=== PATIENT | male | born 1950 | race Caucasian/White ===

== ENCOUNTER → 2019-07-29 14:57 | Outpatient (CLI) | payer MEDICARE, SELFPAY ==
--- NOTE | 2019-07-29 15:15 | RAD_ITS ---
STUDY: X-RAY - LUMBAR SPINE REASON FOR EXAM: Male, 69 years old. PAIN TECHNIQUE: 5 view(s) of the lumbar spine were obtained including oblique views. COMPARISON: None FINDINGS: Normal lumbar lordosis. There is no substantial scoliosis. There is a normal alignment of the vertebrae. There is multilevel endplate spondylosis of the lumbar vertebrae. Normal disc space heights. There is atherosclerotic calcification of the abdominal aorta without a demonstrated aneurysm. RAD/L/S Spine Min 4 Views IMPRESSION: Degenerative changes of the spine, as detailed above. Electronically Signed: Valente Samano, at 15:46 EDT , Service support ,
--- NOTE | 2019-07-29 15:30 | RAD_ITS ---
STUDY: X-RAY CHEST REASON FOR EXAM: Male, 69 years old. PROGRESSIVE COUGH TECHNIQUE: PA and lateral views of the chest. COMPARISON: None. FINDINGS: Hyperinflation. There is a 7.3 cm x 5.8 cm x 6.7 cm mass in the superior segment of the left lower lobe. A neoplastic process should be ruled out. Correlation with a CT scan is recommended. There is no demonstrated pleural abnormality. Normal size heart. Normal mediastinum and mony. Normal visualized pulmonary arteries. There is atherosclerotic calcification of the aortic arch with tortuosity. There are diffuse degenerative changes of the visualized thoracic spine. Normal visualized ribs, clavicles, and shoulders. There is no demonstrated abnormality of the visualized soft tissue structures of the upper abdomen. RAD/Chest PA and Lateral IMPRESSION: 7.3 cm x 5.8 cm x 6.7 cm mass in the supervision of the left lower lobe. A neoplastic process should BE ruled out. Hyperinflation. Electronically Signed: Valente Samano, at 15:45 EDT , Service support ,
[2019-07-29 16:01] LABS: Hematocrit 36.1 % (40-54); Hemoglobin 11.4 g/dL (13.0-16.5); Mean Corp Hgb Conc 31.6 g/dL (32-36); Mean Corpuscular Hgb 25.4 pg (27.0-32.0); Mean Corpuscular Volume 80.6 fL (80-94); Mean Platelet Vol. 8.6 fl (6.2-12.0); Platelet Count 353 K/mm3 (150-450); RBC Distribution Width CV 15.1 % (11.6-14.6); RBC Distribution Width SD 43.8 fl (35.1-43.9); Red Blood Count 4.48 M/mm3 (4.6-6.2); White Blood Count 10.1 K/mm3 (4.4-11.0)
== END ==
PROVIDERS: PCP Nurse Practitioner Family; Visit Provider Nurse Practitioner Family
DX: J20.9 Acute bronchitis, unspecified (principal)
CPT/HCPCS: 36415; 71046; 72110; 85027

== ENCOUNTER → 2019-08-04 07:40 | Outpatient (CLI) | payer MEDICARE, SELFPAY ==
--- NOTE | 2019-08-04 07:48 | CT_ITS ---
STUDY: CT CHEST WITH CONTRAST REASON FOR EXAM: Male, 69 years old. LUNG NODULE RADIATION DOSAGE (If Supplied By Facility): CTDIvol = ( 8.48 ) mGy, DLP = ( 293.60 ) mGycm TECHNIQUE: Transaxial imaging was performed following intravenous administration of 100 mL of Isovue 300. Coronal and sagittal reconstructions were performed. Individualized dose optimization techniques were used for this CT. COMPARISON: PA and lateral chest radiographs 07/29/2019. No prior CT chest for comparison. FINDINGS: The lungs are abnormal. There is a 6.1 x 8.9 x 4.4 cm necrotic mass in the posterior medial aspect of the left lower lobe. This is malignant neoplasm until proven otherwise. There is a central cavitary lesion in the left lung apex with surrounding fibrosis and traction bronchiectasis. The left apical fibrosis extends into the left apical pleural space. There are also coalescent and noncoalescent paraseptal cysts surrounding the left apical fibrosis. Small paraseptal cyst in the right lung apex. Prominent cyst in the left lower lobe. No pleural fluid. Normal cardiac size. Normal pericardium. 1.5 cm solid node in the anterior carinal space. No hilar lymphadenopathy. Normal enhanced pulmonary arteries. Mild dilatation of the ascending aorta with a diameter of 2.9 cm versus 1.9 cm for the descending thoracic aorta. Mild atherosclerotic calcifications along the transverse aorta. No pulmonary thromboemboli. Normal osseous structures. Mild diffuse fatty infiltration of the liver. CT/Chest WITH Contrast IMPRESSION: 1. 6.1 x 8.9 x 4.4 cm necrotic mass in the posterior medial aspect of the left lower lobe. This is malignant neoplasm until proven otherwise. This is feasible for CT guided core biopsy. 2. Left apical cavitary fibrosis with traction bronchiectasis and the apical fibrosis is surrounded by coalescent and noncoalescent paraseptal cysts. 3. Small paraseptal cysts in the right lung apex. 4. Prominent cyst in the left lower lobe. 5. Airway predominant type of COPD as the paraseptal cysts are limited to the lung apices. 6. 1.5 cm solid node in the anterior carinal space. 7. Negative for pulmonary thromboemboli. 8. Mild dilatation of the ascending aorta with a diameter of 2.9 cm versus 1.9 cm for the descending thoracic aorta. Electronically Signed: Qasim Chung MD at 9:36 EDT , Service support ,
[2019-08-04 08:21] LABS: CREATININE FINGERSTICK 1.1 mg/dL (0.70-1.30); EGFR FINGERSTICK > 60.0000 mL/min (>60)
== END ==
PROVIDERS: Referring Provider Nurse Practitioner Family; Visit Provider Nurse Practitioner Family
DX: R91.8 Other nonspecific abnormal finding of lung field (principal); J20.9 Acute bronchitis, unspecified; R06.02 Shortness of breath; Z11.59 Encounter for screening for other viral diseases
CPT/HCPCS: 71260; 87635; 87804; 94799; G2023; Q9967; U0004

== ENCOUNTER → 2019-09-16 | Outpatient (CLI) | payer MEDICARE, SELFPAY ==
[2019-09-16 16:54] LABS: Hemoglobin A1c 7.6 % (3.8-5.6)
== END | disposition home or self-care (01) ==
LOC: LABSPEC 15:41
PROVIDERS: Referring Provider Internal Medicine Hematology & Oncology; Visit Provider Internal Medicine Hematology & Oncology
DX: R73.9 Hyperglycemia, unspecified (principal); C34.90 Malignant neoplasm of unspecified part of unspecified bronchus or lung
CPT/HCPCS: 83036; 84443

== ENCOUNTER → 2019-09-28 15:19 | Outpatient (CLI) | payer MEDICARE, SELFPAY ==
--- NOTE | 2019-09-28 16:00 | PET_ITS ---
EXAMINATION: FDG PET CT INDICATIONS: A 69-year-old male with reported history of carcinoma of the lung presenting for initial staging examination. COMPARISON EXAMINATION: CT of the chest report dated 08/04/19. INDEX LESION SIZE SUV INTERPRETATION Left mid-lower posteromedial lung-left lower lobe 5.7 cm x 7.0 cm (frame 166) 12.8 Fulfills quantitative criteria for viable neoplasm Mediastinum, bilateral thoracic perihilum 16.9 mm largest (frame 177) 4.9 (max) Fulfills quantitative criteria for malignant transformation NON-INDEX LESION SIZE SUV INTERPRETATION Left anterior neck, bilateral supraclavicular regions 2.1 (max) Quantitative criteria for viable neoplasm are not fulfilled TECHNIQUE: Following the intravenous administration of 11.55 mCi of F-18 deoxyglucose via the left antecubital fossa, multiplanar image acquisitions of the neck, chest, abdomen and pelvis to level of mid thigh, obtained at one hour post radiopharmaceutical administration contemporaneously interpreted with the current CT of the neck, chest, abdomen and pelvis to level of mid thigh, dated 09/28/[address] of the chest report dated 08/04/19 reveal: SERUM GLUCOSE LEVEL: 144 mg/dl. HEIGHT: 65 inches. WEIGHT: 136 lbs. FINDINGS: 1. A large heterogeneous focus of increased glucose metabolism with central photopenia is manifest in the left mid-lower posteromedial lung-left lower lobe. The calculated maximum standard uptake value is 12.8. The maximal axial diameter of the corresponding parenchymal density-mass on review of CT of the chest dated 09/28/19 is 5.7 cm (transverse) x 7.0 cm (AP). 2. Facilitated FDG concentration is multifocally apparent in the superior-subcarinal mediastinum and bilateral thoracic perihilar regions rendering a calculated maximum standard uptake value of 4.9. The maximal axial diameter of the largest individual metabolic, morphologic abnormality on review of CT of the chest dated 09/28/19 is 16.9 mm (AP). 3. Several foci of increased radiopharmaceutical uptake are manifest in the left supraclavicular region, bilateral anterior neck registering a calculated maximum standard uptake value of 2.1. Quantitative criteria for viable neoplasm are not fulfilled. 4. Normal physiologic distribution of the radiopharmaceutical is apparent in the hepatic (2.5) and splenic parenchyma, both renal units, bladder and visualized intestinal tract. There is uniform distribution of the radiopharmaceutical concentration defined in the visualized cerebellar hemispheres and cerebral cortical structures. Diffuse intestinal tract activity is noted throughout all four quadrants of the abdominal-pelvic retroperitoneum and mesentery consistent with normal physiologic distribution of the radiopharmaceutical most accentuated in the lower midline pelvic mesentery. Pertinent CT findings are as follows. CHEST: Atherosclerotic calcification is defined in the thoracic aorta without evidence of dilatation, aneurysm formation. Coronary arterial calcification is observed. Bilateral axillary soft tissue densities with fatty hilus are ametabolic. Emphysematous changes are noted in the bilateral upper lung zones. Additional parenchymal densities noted in the right and left hemithorax demonstrate no evidence of quantitatively significant increased FDG distribution. ABDOMEN AND PELVIS: Calcified granuloma formation is defined within the hepatic parenchyma. Atherosclerotic calcification is defined in the abdominal aorta without evidence of dilatation, aneurysm formation. Abdominal-pelvic arterial calcification is observed. Bilateral inguinal soft tissue densities with fatty hilus are non-glucose avid. There is diffuse calcification noted in the bilateral seminal vesicles, as well as multifocally apparent within the prostate gland. SKELETAL: Degenerative changes defined in the cervical, thoracic and lumbar spine demonstrate no evidence of glucose hypermetabolism. PET/PET/CT Tumor Base -Thigh Init IMPRESSION: 1. ABNORMAL EXAMINATION INDICATIVE OF MALIGNANT-VIABLE NEOPLASM. 2. Increased glucose concentration observed in the left lower lung-left lower lobe fulfills quantitative criteria for viable neoplasm. (Guzman et al, Annals of Internal Medicine, 138:724, 2003). 3. Viable metastatic involvement is noted in the superior-subcarinal mediastinum and bilateral thoracic perihilum. (George lion al, Journal of Clinical Oncology 16:2142, 1998). 4. Enhanced glucose avidity discerned in the left anterior neck and bilateral supraclavicular regions does not fulfill quantitative criteria for viable neoplasm. 5. Prominent tracer distribution noted in the lower midline pelvic mesentery contiguous to intestinal tract is most consistent with physiologic radiopharmaceutical uptake. If intraluminal soft tissue mass formation is a diagnostic consideration, correlation with CT of the abdomen and pelvis with oral and intravenous contrast is recommended. (Doaurora et al, Journal of Nuclear Medicine, 30:F074, 2003). Electronic Signature Damian Black, D.O. Accurate Quantification of SUVs for this report are calculated using the exclusive [employer]. (U.S. Patent No. 10, 374 983). Electronically Signed: Damian Alves DO at 22:28 EDT Tel , Service support ,
== END ==
PROVIDERS: Referring Provider Internal Medicine Hematology & Oncology; Visit Provider Internal Medicine Hematology & Oncology
DX: C34.32 Malignant neoplasm of lower lobe, left bronchus or lung (principal)
CPT/HCPCS: 78815; A9552

== ENCOUNTER → 2019-10-18 10:08 | Outpatient (CLI) | payer MEDICARE, SELFPAY ==
[2019-10-18 10:27] LABS: Absolute Lymphocyte Count 1.49 X10^3/uL (0.83-4.51); Absolute Neutrophil Count 6.5 X10^3/uL (2.0-7.7); Basophil# 0.04 X10^3/uL; Basophil% 0.4 % (0-1); Eosinophil# 0.19 X10^3/uL; Eosinophils% 2.1 % (0-5); Hematocrit 33.4 % (40-54); Hemoglobin 10.2 g/dL (13.0-16.5); Lymphocyte # 1.49 X10^3/ul (4.0); Lymphocyte % 16.2 % (19-41); Mean Corp Hgb Conc 30.5 g/dL (32-36); Mean Corpuscular Hgb 24.7 pg (27.0-32.0); Mean Corpuscular Volume 80.9 fL (80-94); Mean Platelet Vol. 8.2 fl (6.2-12.0); Monocyte# 0.96 X10^3/uL; Monocyte% 10.4 % (0-10); NRBC Flagged by Analyzer 0 % (0-5); Neutrophil # 6.48 X10^3/uL (2.7-7.7); Neutrophil % 70.5 % (47-70); Platelet Count 366 K/mm3 (150-450); RBC Distribution Width CV 16.3 % (11.6-14.6); RBC Distribution Width SD 46.8 fl (35.1-43.9); Red Blood Count 4.13 M/mm3 (4.6-6.2); White Blood Count 9.2 K/mm3 (4.4-11.0)
[2019-10-18 10:36] LABS: International Normalized Ratio 1.1; Prothrombin Time (Protime)PT. 13.6 SECONDS (11.7-14.9)
== END ==
PROVIDERS: PCP Nurse Practitioner Family; Referring Provider Internal Medicine Critical Care Medicine; Visit Provider Internal Medicine Critical Care Medicine
DX: C34.92 Malignant neoplasm of unspecified part of left bronchus or lung (principal); R07.9 Chest pain, unspecified
CPT/HCPCS: 36415; 85025; 85610

== ENCOUNTER 2019-10-22 10:50 | Day surgery (SDC) | payer MEDICARE, SELFPAY ==
--- NOTE | 2019-10-20 09:36 | HP.PCM_ITS ---
History of Present Illness Date of Admission: 10/22/19 Chief Complaint: PET + Hilar Adenopathy The patient is a 69-year-old male who presented to the pulmonary clinic on 10/16 in referral for mediastinal lymph node staging due to a history of non-small cell lung cancer. The patient initially completed a chest CT in July 2019 which did reveal evidence of a large necrotic mass in the left lower lobe. He was then referred to undergo a CT-guided needle biopsy at [facility] in August 2019. 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 The patient then completed a PET scan in mid September which revealed increased glucose concentration observed in the left lower lobe along with viable metastatic involvement in the subcarinal mediastinum and bilateral thoracic perihilum. The patient is currently established with Dr. Lomas of oncology. Given the results of the patient's PET scan, there is concern for possible N3 involvement. Therefore, the patient was referred to our office to be considered for right hilar lymph node evaluation via EBUS. The patient does have an approximate [id number] smoking history and continues to smoke 0.5 packs of cigarettes per day. He is currently scheduled to undergo pulmonary function studies on the of this month through the [facility]. He does not currently utilize any inhalers at his baseline. The patient was previously employed working for [employer]. Past Medical History Past Medical History (Chronic Problems): Chronic Problems (Last Reviewed 10/15/19 @ 13:24 by Tonya Zarate) HTN (hypertension) (Chronic) Medical History: Medical History (Last Reviewed 10/15/19 @ 13:24 by Tonya Zarate) Tobacco abuse (Acute) Z72.0 HTN (hypertension) (Chronic) I10 DM2 (diabetes mellitus, type 2) (Acute) E11.9 Allergies Penicillins Allergy (Unknown, Verified 10/19/19 10:41) Rash Home Medications: Ambulatory Orders Medication Instructions Recorded aspirin 81 mg tablet,delayed 81 mg PO DAILY 10/18/19 release glimepiride 2 mg tablet 2 mg PO DAILY 10/18/19 losartan 50 mg tablet 50 mg PO DAILY 10/18/19 outbesyb-uyf-tzemr acid 0.4 1 tab PO DAILY 10/18/19 mg-lycopene 300 mcg-lutein 250 mcg tablet simvastatin 20 mg tablet 20 mg PO DAILY 10/18/19 Insulin Glargine [Lantus (BKC)] 22 units SUBCUT QHS 10/19/19 [place]-3 Fatty Acids/Fish Oil [Fish 1 ea PO DAILY 10/19/19 Oil 1,000 mg Capsule] Surgical History: Surgical History (Last Updated 10/18/19 @ 09:26 by Nelli Hooker) History of cholecystectomy Z90.49 History of tonsillectomy Z90.89 Smoking Status: Current every day smoker Tobacco Use: Cigarettes Review of Systems Constitutional: Denies: Chills, Fever, Weight Change HEENT: Denies: Head Aches, Sinus Congestion, Sinus Drainage Cardiovascular: Denies: Chest Pain, Palpitations Respiratory: Reports: Shortness of Breath Gastrointestinal: Denies: Abdominal Pain, Nausea, Vomiting Genitourinary: Denies: Dysuria Musculoskeletal: Denies: Joint Pain, Joint Tenderness Skin: Denies: Rash, Wounds Neurological: Denies: Numbness, Tingling, Focal weakness Psychiatric: Denies: Anxiety, Depression, Homicidal Ideations, Suicidal Ideations Hematologic/ Lymphatic: Denies: Easy Bruising, Easy Bleeding VTE Information - Inpt Only VTE Present on Admission: No VTE Mechan Device Prophylaxis: None VTE Pharm Prophylaxis ordered?: No Reason prophylaxis not ordered:: Treatment Not Indicated - Physical Exam General: Alert, No apparent distress HEENT: Atraumatic, Normocephalic Oral: No Gingival or Mucosal Lesions/ Ulcerations Neck: Supple, No Nodes Lungs: Diminished, Wheezes Cardiovascular: Regular rate, Regular Rhythm Abdomen: Bowel Sounds Present, Soft, Non Tender Extremities: No cyanosis, No edema Skin: No breakdown Musculoskeletal: No Muscle Wasting Neurological: Neuro grossly intact Psych/Mental Status: Normal Affect Assessment/Plan All Active Problems (Last Reviewed 10/15/19 @ 13:24 by Tonya Zarate) Tobacco abuse (Acute) DM2 (diabetes mellitus, type 2) (Acute) Assessment & Plan 1. Non-small cell cancer of left lung C34.92 Plan The patient was recently diagnosed with poorly differentiated squamous cell carcinoma following a CT-guided lung biopsy of a left lower lobe lung mass in August 2019. Follow-up PET scan did reveal radiopharmaceutical uptake in the mediastinum and bilateral thoracic perihilar regions. There is obvious concern for N3 node involvement. Accordingly, the patient was referred to be evaluated for transbronchial needle aspiration of the aforementioned lymph node station, as this would aid in planning his radiation treatment. Plan to proceed with EBUS on 10/21.
[2019-10-21 13:42] LABS: Probe Check PASS; Specimen Processing Control PASS
--- NOTE | 2019-10-22 | FLU_PTH ---
PATIENT: DANNY HARRINGTON LOC: EN U#:[id number] AGE/SX: 69/M ROOM: RE10/22/[address]: Dr. Inderjit Duncan DO : 1950 BED: DIS: 10/22/2019 SPEC #: [id number] RECD: 10/22/19 13:02 STATUS: JOSH JASON #: [id number] LUISA: 10/22/19 00:[address]: Inderjit Duncan DEPT: CYTOLOGY RECD BY: Heri Gonzalez ENTERED: 10/22/19 13:03 SP TYPE: Fluid OTHR DR: Damian Ordaz, AUT[employer] TE[employer]-C Tissues: A - Lung, NOS B - Lung, NOS C - Lung, NOS D - Lung, NOS E - Lung, NOS F - Lung, NOS G - Lung, NOS Procedures: Special Stain Group II Special Stain Group I Surgery Specimen Level IV AFB Stain (control) GMS Stain (control) Cytospin Fluid Cytology Other HEADER OPERATION: EBUS PRE-OP DIAGNOSIS: Mediastinal lymphadenopathy; lung mass TISSUE SUBMITTED: A - EBUS, TBNA, aspiration #1, site 10R, B - EBUS, TBNA, aspiration #2, site 10R, C - EBUS, TBNA, aspiration #3, site 10R, D - EBUS, TBNA, aspiration #4, site 10R, E - EBUS, TBNA, aspiration #5, site 10R, F - EBUS, TBNA, aspiration #6, site 10R, G - EBUS, TBNA, site 10R DIAGNOSIS CYTOLOGY A. EBUS, TBNA, aspiration #1, site 10R (smears): Negative for malignant cells. Respiratory epithelial cells and rare lymphocytes are noted. B. EBUS, TBNA, aspiration #2, site 10R (smears): Negative for malignant cells. Respiratory epithelial cells and lymphocytes are noted. C. EBUS, TBNA, aspiration #3, site 10R (smears): Negative for malignant cells. Respiratory epithelial cells, macrophages and rare lymphocytes are noted. D. EBUS, TBNA, aspiration #4, site 10R (smears): Predominantly blood. Negative for malignant cells. A few respiratory epithelial are noted. E. EBUS, TBNA, aspiration #5, site 10R (smears): Predominantly blood. Negative for malignant cells. F. EBUS, TBNA, aspiration #6, site 10R (smears): Negative for malignant cells. Respiratory epithelial cells and rare macrophages are noted. G. EBUS, TBNA, site 10R fluid (cell block): Negative for malignant cells. Benign lymph node tissue with focal area of non-necrotizing granuloma. Respiratory epithelial cells are also noted. Special stains for acid fast bacilli and fungi are negative for organisms; matched controls are appropriate. See comment. MAXIMILIAN:mela 10/25/19 COMMENT The specimen is evaluated at the time of procedure by Dr. Trujillo. Immediate Evaluation: A. EBUS, TBNA, aspiration #1, site 10R: Negative for malignant cells. Respiratory epithelial cells and rare lymphocytes are noted. B. EBUS, TBNA, aspiration #2, site 10R: Negative for malignant cells. Respiratory epithelial cells and lymphocytes are noted. C. EBUS, TBNA, aspiration #3, site 10R: Negative for malignant cells. Respiratory epithelial cells, macrophages and rare lymphocytes are noted. D. EBUS, TBNA, aspiration #4, site 10R: Predominantly blood. Negative for malignant cells. E. EBUS, TBNA, aspiration #5, site 10R: Predominantly blood. Negative for malignant cells. F. EBUS, TBNA, aspiration #6, site 10R: Negative for malignant cells. Respiratory epithelial cells noted. G. Correlation with clinical, radiologic findings and appropriate follow up are necessary. Case has been reviewed in consultation with Dr. Perez who concurs with the above diagnosis. IDC:AM CYTOLOGY STUDY Slides are reviewed. CYTOLOGY GROSS A - Received labeled with the patient's name and and designated EBUS, TBNA, aspiration #1, site 10R. The specimen consists of two smears. The smears are submitted for immediate cytologic evaluation (wet read). B - Received labeled with the patient's name and and designated EBUS, TBNA, aspiration #2, site 10R. The specimen consists of two smears. The smears are submitted for immediate cytologic evaluation (wet read). C - Received labeled with the patient's name and and designated EBUS, TBNA, aspiration #3, site 10R. The specimen consists of two smears. The smears are submitted for immediate cytologic evaluation (wet read). D - Received labeled with the patient's name and and designated EBUS, TBNA, aspiration #4, site 10R. The specimen consists of two smears. The smears are submitted for immediate cytologic evaluation (wet read). E - Received labeled with the patient's name and and designated EBUS, TBNA, aspiration #5, site 10R. The specimen consists of two smears. The smears are submitted for immediate cytologic evaluation (wet read). F - Received labeled with the patient's name and and designated EBUS, TBNA, aspiration #6, site 10R. The specimen consists of two smears. The smears are submitted for immediate cytologic evaluation (wet read). G - Received is 30 ml of red, cloudy fluid in RPMI labeled with the patient's name and and designated EBUS, TBNA, site 10R submitted for cell block. / SJ:rg 10/22/19 TC:5 CPT: 52788, 43862, 38950, 58029 x5, 61617 x2
[2019-10-22] MEDS: Lactated Ringers 1,000 ML 100 ML IV (11:19)
[2019-10-22 11:20] VITALS: BP 155/76; PULSE 98; RESP 16; TEMP 36.8; O2SAT 98; BMI 20.8
[2019-10-22 11:36] LABS: Bedside Glucose 114 mg/dL (70-110)
--- NOTE | 2019-10-22 12:51 | OP.BRONCH_ITS ---
Patient Name: Julien Monge Procedure Date: 10/22/2019 11:47 AM Date of : 1950 Age: 69 Procedure: Bronchoscopy Indications: Mediastinal adenopathy, Known lung cancer, Bilateral hilar lymphadenopathy Providers: Inderjit Duncan MD Referring MD: Damian Ordaz Requesting Physician: Ronald Lomas Complications: No immediate complications Procedure: Pre-Anesthesia Assessment: - A History and Physical has been performed. Patient meds and allergies have been reviewed. The risks and benefits of the procedure and the sedation options and risks were discussed with the patient. All questions were answered and informed consent was obtained. Patient identification and proposed procedure were verified prior to the procedure by the physician and the nurse in the procedure room. Mental Status Examination: alert and oriented. Airway Examination: normal oropharyngeal airway. Respiratory Examination: clear to auscultation. CV Examination: RRR, no murmurs, no S3 or S4. ASA Grade Assessment: III - A patient with severe systemic disease. After reviewing the risks and benefits, the patient was deemed in satisfactory condition to undergo the procedure. The anesthesia plan was to use general anesthesia. Immediately prior to administration of medications, the patient was re-assessed for adequacy to receive sedatives. The heart rate, respiratory rate, oxygen saturations, blood pressure, adequacy of pulmonary ventilation, and response to care were monitored throughout the procedure. The physical status of the patient was re-assessed after the procedure. After I obtained informed consent, the scope was passed under direct vision. Throughout the procedure, the patient's blood pressure, pulse, and oxygen saturations were monitored continuously. The ultrasound bronchoscope was introduced through the mouth, via laryngeal mask airway and advanced to the tracheobronchial tree. The procedure was accomplished without difficulty. The patient tolerated the procedure well. Findings: The laryngeal mask airway is in good position. The vocal cords appear normal. The subglottic space is normal. The trachea is of normal caliber. The donald is sharp. The tracheobronchial tree was examined to at least the first subsegmental level. Bronchial mucosa and anatomy are normal; there are no endobronchial lesions, and no secretions. The scope was withdrawn and replaced with the EBUS bronchoscope to accomplish the ultrasound examination. Lymph Nodes: An endobronchial ultrasound endoscope was utilized to systematically examine the right hilar region (level 10R) in order to assist with fine needle aspiration. Lymph node sizing was performed via endobronchial ultrasound for known non-small cell lung cancer. Sampling by transbronchial needle aspiration was also performed using an Olympus EBUS-TBNA 19 gauge needle in the right hilar region (level 10R) and sent for routine cytology. - The 10R (hilar) node was evaluated. Six samples with the needle were obtained. Lymph Nodes: A PET scan was found to be hypermetabolic in the right hilar region (level 10R) node. Impression: - Mediastinal adenopathy - Known lung cancer - Bilateral hilar lymphadenopathy - The airway examination was normal. - Endobronchial ultrasound was performed. - Lymph node sizing and sampling was performed. Recommendation: - Await cytology results. Procedure Code(s): --- Professional --- 12421, Bronchoscopy, rigid or flexible, including fluoroscopic guidance, when performed; with endobronchial ultrasound (EBUS) guided transtracheal and/or transbronchial sampling (eg, aspiration[s]/biopsy[ies]), one or two mediastinal and/or hilar lymph node stations or structures Diagnosis Code(s): --- Professional --- R59.0, Localized enlarged lymph nodes C34.90, Malignant neoplasm of unspecified part of unspecified bronchus or lung R09.89, Other specified symptoms and signs involving the circulatory and respiratory systems CPT copyright 2017 [employer]. All rights reserved. The codes documented in this report are preliminary and upon bus matron review may be revised to meet current compliance requirements. DO Inderjit Duong MD 10/22/2019 12:51:34 PM This report has been signed electronically. Number of Addenda: 0 Note Initiated On: 10/22/2019 11:47 AM
[2019-10-22 12:53] VITALS: BP 105/53; BP 155/76; PULSE 99; RESP 16; TEMP 36.1; O2SAT 94
[2019-10-22 13:05] VITALS: BP 107/57; BP 155/76; PULSE 100; RESP 16; O2SAT 95
[2019-10-22 13:15] VITALS: BP 105/52; BP 155/76; PULSE 96; RESP 18; O2SAT 95
[2019-10-22 13:39] VITALS: BP 103/61; BP 155/76; PULSE 93; RESP 16; TEMP 36.1; O2SAT 96
[2019-10-22 14:15] VITALS: BP 137/56; BP 155/76; PULSE 98; RESP 16; TEMP 36.3; O2SAT 94
--- NOTE | 2019-10-22 14:35 | SUR.OPER ---
MOHSEN, FRANKLIN CALIXTO, ANESTHESIA STUDENT ALL PRESENT FOR PROCEDURE.
== END 2019-10-22 14:25 | disposition home or self-care (01) ==
LOC: EN 10:52 → AC 10:52
PROVIDERS: PCP Nurse Practitioner Family; Referring Provider Nurse Practitioner Family; Visit Provider Internal Medicine Critical Care Medicine
PROC: BB4BZZZ Ultrasonography of Pleura (ICD-10-PCS; CPT 31652; principal; 2019-10-22 11:30)
DX: R59.0 Localized enlarged lymph nodes (principal); C34.32 Malignant neoplasm of lower lobe, left bronchus or lung; E78.00 Pure hypercholesterolemia, unspecified; I10 Essential (primary) hypertension; E11.9 Type 2 diabetes mellitus without complications; F17.210 Nicotine dependence, cigarettes, uncomplicated; Z88.0 Allergy status to penicillin; Z79.82 Long term (current) use of aspirin; Z79.4 Long term (current) use of insulin; Z87.01 Personal history of pneumonia (recurrent); Z79.899 Other long term (current) drug therapy
CPT/HCPCS: 31652; 82962; 87635; 88108; 88161; 88305; 88312; 88313; 94799; J7120; J2405; U0003

== ENCOUNTER → 2019-12-24 08:08 | Outpatient (CLI) | payer MEDICARE, SELFPAY ==
[2019-12-24] VITALS (9 sets, daily range): BP systolic 127–140; BP diastolic 48–61; PULSE 89–117; RESP 16; TEMP 36.5–36.8; O2SAT 93–100; BMI 19.1
[2019-12-24] MEDS: 0.9% NaCl Peripheral Flush Adult/Peds IV ×3 (08:53→08:58)
== END ==
PROVIDERS: PCP Nurse Practitioner Family; Referring Provider Internal Medicine Hematology & Oncology; Visit Provider Internal Medicine Hematology & Oncology
DX: D64.81 Anemia due to antineoplastic chemotherapy (principal)
CPT/HCPCS: 36430; 86850; 86900; 86901; 86920; 86922; J7040; P9016; A4216

== ENCOUNTER → 2020-01-18 | Outpatient (CLI) | payer MEDICARE, SELFPAY ==
[2019-12-24 08:23] VITALS: BMI 19.1
[2020-01-18 13:53] LABS: Thyroid Stim Hormone (TSH) 0.61 uIU/mL (0.358-3.74)
== END | disposition home or self-care (01) ==
LOC: LABSPEC 12:35
PROVIDERS: PCP Nurse Practitioner Family; Referring Provider Internal Medicine Hematology & Oncology; Visit Provider Internal Medicine Hematology & Oncology
DX: C34.80 Malignant neoplasm of overlapping sites of unspecified bronchus and lung (principal); E83.52 Hypercalcemia
CPT/HCPCS: 82533; 84443

== ENCOUNTER 2020-05-25 09:02 | Inpatient (IN) | payer MEDICARE, SELFPAY ==
[2019-12-24 08:23] VITALS: BMI 19.1
[2020-05-25] VITALS (12 sets, daily range): BP systolic 113–136; BP diastolic 50–68; PULSE 94–126; RESP 16–28; TEMP 35.9–36.9; O2SAT 96–99; BMI 17.4; BMI 17.5; BMI 18.0
--- NOTE | 2020-05-25 09:16 | ED.VIS.GEN ---
History of Present Illness Chief Complaint: Shortness of Breath Informant: Patient Narrative: 70-year-old male presenting with hypoxia. Patient has non-small cell lung cancer and was at Dr. Lomas's office today for blood work and it was noted that his pulse ox was in the 50s. Dr. Lomas stated the highest he could get it was in the 70s. Patient was noted to have a heart rate of 160 there as well. On arrival he satting in the 90s on room air if he sits still however if he moves in the bed or starts to talk he drops down into the 70s. Patient denies cough that is changed although he has a chronic smoker's cough. Patient states that he quit smoking 3 weeks ago. Patient states he smoked for 60 years. Patient has no known diagnosis of COPD. Patient denies chest pain, palpitations, shortness of breath. He is not had fever, chills, myalgias. He states that food has not tasted right since January when he started his new chemotherapy. His last chemotherapy was 2 weeks ago. Patient states that he has not had any leg swelling. He denies history of DVT/PE. Past Medical History - Allergies and Home Meds Allergies/Adverse Reactions: Allergies Penicillins Allergy (Unknown, Verified 05/25/20 09:09) Rash Prior records reviewed: Yes Past Medical History: - - Hypertension, diabetes, hyperlipidemia, non-small cell lung cancer Lives: Spouse/ Significant Other Smoking Status: Current every day smoker Alcohol: None Drugs: None Review of Systems General: Denies: Chills, Fever, Sweats Eyes: Denies: Visual changes - bilaterally, Diplopia ENT: Denies: Rhinorrhea, Sore throat Cardiovascular: Denies: Chest pain, Palpitations Respiratory: Reports: Cough, Sputum, Dyspnea on exertion Gastrointestinal: Denies: Abdominal pain, Nausea, Vomiting, Diarrhea, Melena, Hematochezia Genitourinary: Denies: Dysuria, Hematuria, Frequency Musculoskeletal: Denies: Back pain, Extremity Pain Skin: Denies: Rash, Wounds Neurological: Denies: Headache, Weakness, Numbness Psych: Denies: Depression, Anxiety, Suicidal thoughts, Suicidal ideations, -, - Physical Exam Vital Signs/Narrative: Vital Signs Temp Pulse Resp BP Pulse Ox 05/25/20 09:04 96.7 F L 126 H 17 118/68 99 Inital Vital Signs reviewed: Yes General: Cachectic, No Acute Distress Head: Normocephalic, Atraumatic Eyes: Perrl, EOMI ENT: Moist mucous membranes, No rhinorrhea Cardiovascular: Regular rate, Regular rhythm Respiratory: No distress, CTA bilaterally Abdomen: Soft, Nontender, Nondistended Extremities: Nontender, No edema Skin: Normal color, No rash. Negative for: Cyanosis, Diaphoresis Neurological: Alert, Oriented x3, Cranial nerves II-XII grossly intact Psychological: Normal affect, Normal Mood Diagnostic/Tx/Re-eval Clinical Impression(s) from Imaging Studies Chest X-Ray 05/25/20 10:29 IMPRESSION: Left lower lobe pneumonia. Electronically Signed: Roseann Polanco MD at 11:52 EST Tel , Service support , Chest CTA 05/25/20 12:23 IMPRESSION: No demonstrated pulmonary embolism or arterial dissection. There is a soft tissue mass in the left lower lobe superior segment has decreased in size since the previous study now measures 4.4 x 3.1 cm, that measured previously 6 x 4.9 cm. There are ill-defined groundglass opacities in the right lower lobe, left upper lobe and left lower lobe may represent postradiation changes or pneumonia. Electronically Signed: Roseann Polanco MD at 13:25 EST Tel , Service support , Laboratory Data 05/25/20 05/25/20 05/25/20 10:45 10:45 10:45 WBC 6.5 RBC 3.29 L Hgb 8.8 L Hct 28.7 L MCV 87.2 MCH 26.7 L MCHC 30.7 L RDW Std Deviation 60.5 H RDW Coeff of Nestor 18.9 H Plt Count 324 MPV 8.0 Immature Gran % (Auto) 1.400 H Neut % (Auto) 73.4 H Lymph % (Auto) 10.1 L [place] % (Auto) 13.2 H Eos % (Auto) 1.4 Baso % (Auto) 0.5 Absolute Neuts (auto) 4.8 Absolute Lymphs (auto) 0.66 L Nucleated RBC % 0 PT INR APTT Sodium 139 Potassium 4.9 Chloride 109 H Carbon Dioxide 24.0 Anion Gap 6 BUN 27 H Creatinine 0.99 Estim Creat Clear Calc 50.49 Est GFR (MDRD) Af Amer 95 Est GFR (MDRD) Non-Af 79 BUN/Creatinine Ratio 27.2 H Glucose 69 L Lactic Acid 0.9 Calcium 8.3 L Total Bilirubin 0.80 AST 22 ALT 20 Alkaline Phosphatase 131 H Troponin I < 0.015 Total Protein 6.4 Albumin 2.4 L Globulin 4.0 Albumin/Globulin Ratio 0.6 L Procalcitonin Urine Color Urine Clarity Urine pH Ur Specific [place] Urine Protein Urine Glucose (UA) Urine Ketones Urine Occult Blood Urine Nitrite Urine Bilirubin Urine Urobilinogen Ur Leukocyte Esterase Urine RBC Urine WBC Ur Squamous Epith Cells Urine Bacteria Urine Mucus 05/25/20 05/25/20 05/25/20 10:45 11:20 14:13 WBC RBC Hgb Hct MCV MCH MCHC RDW Std Deviation RDW Coeff of Nestor Plt Count MPV Immature Gran % (Auto) Neut % (Auto) Lymph % (Auto) [place] % (Auto) Eos % (Auto) Baso % (Auto) Absolute Neuts (auto) Absolute Lymphs (auto) Nucleated RBC % PT 13.4 INR 1.1 APTT 31.7 Sodium Potassium Chloride Carbon Dioxide Anion Gap BUN Creatinine Estim Creat Clear Calc Est GFR (MDRD) Af Amer Est GFR (MDRD) Non-Af BUN/Creatinine Ratio Glucose Lactic Acid Calcium Total Bilirubin AST ALT Alkaline Phosphatase Troponin I Total Protein Albumin Globulin Albumin/Globulin Ratio Procalcitonin 0.13 H Urine Color Straw Urine Clarity Sl. Cloudy Urine pH 5.0 Ur Specific [place] 1.010 Urine Protein 30 H Urine Glucose (UA) Normal Urine Ketones Negative Urine Occult Blood 10 H Urine Nitrite Negative Urine Bilirubin Negative Urine Urobilinogen Normal Ur Leukocyte Esterase 100 H Urine RBC 0 SEEN Urine WBC 5-10 SEEN Ur Squamous Epith Cells 0-5 SEEN Urine Bacteria 0 SEEN Urine Mucus RARE - Medical Decision Making 70-year-old male presenting with hypoxia. His does state that his oxygen has been running low recently. Previously has done radiation therapy to the left side of his chest. He is currently on chemotherapy his last dose was 2 weeks ago. He went in today for a lab draw and evaluation and was noted to be hypoxic in the 50s. Patient does not usually wear oxygen. He is a long-term smoker. Patient quit 3 weeks ago. Patient's white blood cell count is 6.5, hemoglobin 8.8, platelets 324. Patient's renal function is normal. Lactate is 0.9 LFTs are normal. Troponin negative procalcitonin negative. Patient's EKG interpreted by myself shows sinus rhythm at 100 bpm with right bundle branch block. Patient's chest x-ray one-view portable shows what appears to be a left lower lobe infiltrate as interpreted by myself. Radiology does agree. Patient did have CTA performed given his history of cancer and hypoxia to rule out PE. There are no pulmonary emboli nor is there dissection. Patient does have multiple areas of groundglass opacities however he has had radiation therapy to his chest. His rapid Covid was negative. Given patient's hypoxia he will be admitted to the hospital for further treatment. Hospitalist did request Covid PCR to ensure that he does not have COVID-19. Patient has a negative procalcitonin so I will hold antibiotics at this time. Patient will stay in the emergency room until this results. Impression: 1. Hypoxia 2. Multiple groundglass opacities 3. History of non-small cell lung cancer ED Disposition - Plan for ED Patient:
--- NOTE | 2020-05-25 09:28 | EKG12_ITS ---
Test Reason : Blood Pressure : / mmHG Vent. Rate : 108 BPM Atrial Rate : 108 BPM P-R Int : 120 ms QRS Dur : 118 ms QT Int : 348 ms P-R-T Axes : 070 061 051 degrees QTc Int : 466 ms Sinus tachycardia Incomplete right bundle branch block Cannot rule out Anterior infarct , age undetermined Abnormal ECG Confirmed by RUDY FULLER, VADIM ([id number]), assistant editor TRISHA SILVA ([id number]) on 05/29/2020 11:03:01 A M Referred By: TA Confirmed By:JOSEMANUEL GRANT MD
--- NOTE | 2020-05-25 10:29 | RAD_ITS ---
STUDY: X-RAY CHEST REASON FOR EXAM: Male, 70 years old. Hypoxia TECHNIQUE: Single AP portable view of the chest. COMPARISON: 07/29/2019 FINDINGS: There is a known left lung lower lobe mass measures approximately 4 cm, lateral to the mass there is an ill-defined groundglass opacity opacity in the adjacent part of the left lower lobe suggesting pneumonia. There is no demonstrated pleural abnormality. Normal size heart. Normal mediastinum and mony. Normal visualized pulmonary arteries. Normal visualized aortic arch and descending thoracic aorta. There is a dextroscoliosis of the thoracic spine. There is degenerative osteoarthritis of the bilateral shoulders. There is no demonstrated abnormality of the visualized soft tissue structures of the upper abdomen. RAD/Chest 1 View (Portable) IMPRESSION: Left lower lobe pneumonia. Electronically Signed: Roseann Polanco MD at 11:52 EST Tel , Service support ,
[2020-05-25 11:01] LABS: Absolute Lymphocyte Count 0.66 X10^3/uL (0.83-4.51); Absolute Neutrophil Count 4.8 X10^3/uL (2.0-7.7); Basophil# 0.03 X10^3/uL; Basophil% 0.5 % (0-1); Eosinophil# 0.09 X10^3/uL; Eosinophils% 1.4 % (0-5); Hematocrit 28.7 % (40-54); Hemoglobin 8.8 g/dL (13.0-16.5); Lymphocyte # 0.66 X10^3/ul (4.0); Lymphocyte % 10.1 % (19-41); Mean Corp Hgb Conc 30.7 g/dL (32-36); Mean Corpuscular Hgb 26.7 pg (27.0-32.0); Mean Corpuscular Volume 87.2 fL (80-94); Monocyte# 0.86 X10^3/uL; Monocyte% 13.2 % (0-10); NRBC Flagged by Analyzer 0 % (0-5); Neutrophil # 4.78 X10^3/uL (2.7-7.7); Neutrophil % 73.4 % (47-70); Platelet Count 324 K/mm3 (150-450); RBC Distribution Width CV 18.9 % (11.6-14.6); RBC Distribution Width SD 60.5 fl (35.1-43.9); Red Blood Count 3.29 M/mm3 (4.6-6.2); White Blood Count 6.5 K/mm3 (4.4-11.0)
[2020-05-25 11:17] LABS: ALB/GLOB Ratio 0.6 RATIO (0.9-2.4); AST(SGOT) 22 U/L (15-37); Alanine Aminotransfer ALT/SGPT 20 U/L (16-61); Albumin, Serum 2.4 g/dL (3.2-5.0); Alkaline Phosphatase 131 U/L (45-117); Anion Gap 6 (5-15); BUN 27 mg/dL (7-18); BUN/Creat Ratio 27.2 RATIO (10-20); Calcium,Total 8.3 mg/dL (8.5-10.1); Chloride 109 mmol/L (98-107); Creatinine, Serum 0.99 mg/dL (0.70-1.30); EST Glomerular Filtration Rate 79 mL/min (>60); Est Glom Filt Rate - Afr Amer 95 mL/min (>60); Estimated Creatinine Clearance 50.49 ml/min; Glucose 69 mg/dL (74-106); Potassium 4.9 mmol/L (3.5-5.1); Protein, Total 6.4 g/dL (6.4-8.2); Sodium Level 139 mmol/L (136-145)
[2020-05-25 11:23] LABS: Lactic Acid 0.9 mmol/L (0.4-1.9)
[2020-05-25 11:57] LABS: International Normalized Ratio 1.1; Prothrombin Time (Protime)PT. 13.4 SECONDS (11.7-14.9)
[2020-05-25 11:58] LABS: Partial Thromboplast Time 31.7 Seconds (24.1-36.2)
--- NOTE | 2020-05-25 12:23 | CT_ITS ---
STUDY: CTA CHEST REASON FOR EXAM: Male, 70 years old. HYPOXIA RADIATION DOSAGE (If Supplied By Facility): CTDIvol = ( 3.68 ) mGy, DLP = ( 203.99 ) mGycm TECHNIQUE: The examination was performed with the intravenous administration of . Post-processing of the angiographic images was performed, with multiplanar reformation and 3D reconstruction. Individualized dose optimization techniques were used for this CT. COMPARISON: 08/04/2019. FINDINGS: Normal enhancement of the main pulmonary artery and right and left pulmonary arteries. Normal enhancement of the bilateral peripheral pulmonary arteries. There is no demonstrated pulmonary embolism. Normal thoracic aorta and visualized great vessels. There is no demonstrated aortic dissection. Normal heart and pericardium. Normal mediastinum. Normal hilar regions. Normal visualized trachea and bronchi. The lungs are well expanded. There is a soft tissue mass in the left lower lobe superior segment has decreased in size since the previous study now measures 4.4 x 3.1 cm, that measured previously 6 x 4.9 cm. There are ill-defined groundglass opacities in the right lower lobe, left upper lobe and left lower lobe may represent postradiation changes or pneumonia. There is small left pleural effusion. Normal chest wall structures. Normal osseous structures. Normal visualized upper abdomen. CT/CTA Chest W/WO Contrast IMPRESSION: No demonstrated pulmonary embolism or arterial dissection. There is a soft tissue mass in the left lower lobe superior segment has decreased in size since the previous study now measures 4.4 x 3.1 cm, that measured previously 6 x 4.9 cm. There are ill-defined groundglass opacities in the right lower lobe, left upper lobe and left lower lobe may represent postradiation changes or pneumonia. Electronically Signed: Roseann Polanco MD at 13:25 EST Tel , Service support ,
[2020-05-25 13:10] LABS: Procalcitonin 0.13 ng/mL (0.00-0.09)
--- NOTE | 2020-05-25 13:58 | HP.PCM_ITS ---
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 Lomas. The patient is a 70 y/o M w/ PMHx: Severe Protein Calorie Malnutrition, HTN, HLD, Diabetes mellitus type II, Chronic anemia, Former Tobacco use, Known Non- small cell Lung CA who presents to the [facility] ED on 05/25/20 with history of worsening dyspnea and hypoxia, recent evaluation per Dr. Lomas with pulse oximeter in his office 50% following exerting himself with concurrently associated tachycardia, nearly up to 160s with improvement if he rests only with ongoing unchanged chronic cough. He does report recent tobacco cessation ~ 3 weeks prior. He notes he has felt worse since his most recent chemotherapy regimen which was ~ 2 weeks prior to his current presentation. He notes chronic taste alteration with his food since 01/2020 start of his most recent chemotherapeutic agent. Work-up in the ED included T 96.7 temporally, heart rate initially 126 with improvement to 103, BP 118/68, respiratory rate 17, 99% on room air, CBC with WC 6.5, hemoglobin 8.8, MCV 87.2, platelet 324 with increased immature granulocytes and lymphopenia concurrently, unremarkable coags, CMP with chloride 109, BUN/creatinine 27/0.99, glucose 69, lactic acid 0.9, hepatic profile remarkable for alk phos 131, procalcitonin 0.13, troponin less than 0.015, rapid Covid antigen negative, rapid influenza panel negative, blood culture x2 pending per ED, chest x-ray with questionable left lower lobe pneumonia, follow-up CTPA with no demonstrated pulmonary embolism or arterial dissection with a soft tissue mass in the left lower lobe superior segment noted to have decreased in size since prior study measuring 4.4 x 3.1 cm previously 6 x 4.9 cm as well as ill-defined groundglass opacities in the right lower lobe, left upper lobe and left lower lobe possibly representing post radiation changes versus pneumonia. In the ED patient administered NS. Past Medical History Past Medical History (Chronic Problems): Chronic Problems (Last Reviewed 10/15/19 @ 13:24 by Tonya Zarate) Severe protein-calorie malnutrition (Chronic) Chronic anemia (Chronic) Tobacco abuse (Chronic) HTN (hypertension) (Chronic) DM2 (diabetes mellitus, type 2) (Chronic) Medical History: Medical History (Last Reviewed 10/15/19 @ 13:24 by Tonya Zarate) Tobacco abuse (Acute) Z72.0 HTN (hypertension) (Chronic) I10 DM2 (diabetes mellitus, type 2) (Acute) E11.9 Allergies Penicillins Allergy (Unknown, Verified 05/25/20 09:09) Rash Home Medications: Ambulatory Orders Medication Instructions Recorded glimepiride 2 mg tablet 2 mg PO DAILY 10/18/19 losartan 50 mg tablet 100 mg PO DAILY 10/18/19 Insulin Glargine [Lantus (BKC)] 22 units SUBCUT QHS 10/19/19 Acetaminophen 500 mg PO Q8H PRN PRN 05/25/20 Potassium Chloride [Klor-Con] 20 meq PO BID 05/25/20 Simvastatin 20 mg PO QHS 05/25/20 Surgical History: Surgical History (Last Updated 10/18/19 @ 09:26 by Nelli Hooker) History of cholecystectomy Z90.49 History of tonsillectomy Z90.89 Surgical History: - - Cholecystectomy, tonsillectomy. Psychiatric History: No pertinent psych hx Lives: Spouse/ Significant Other Smoking Status: Former smoker - Patient quit cigarette tobacco usage approximately 3 weeks prior to current presentation. Patient with 60 years of tobacco use with ~[id number] smoking history w/ ongoing 1/2 pack per day until as noted ~ 3 weeks prior to current presentation. Tobacco Use: Non-smoker Alcohol: None Drugs: None - *Family History Maternal Family History: Family History (Last Updated 10/18/19 @ 10:[address] Inderjit Duncan DO) Other Cancer History Items: Heart Disease Paternal Family History: Family History (Last Updated 10/18/19 @ 10:[address] Inderjit Duncan, DO) Other Cancer History Items: Diabetes Review of Systems Constitutional: Reports: Anorexia, Malaise, Weakness, Fatigue. Denies: Chills, Fever, Weight Change HEENT: Denies: Head Aches, Sinus Congestion, Sinus Drainage Cardiovascular: Denies: Chest Pain, Palpitations Respiratory: Reports: Cough, Shortness of Breath, Shortness of breath upon exertion. Denies: Shortness of breath at rest, Sputum production Gastrointestinal: Denies: Abdominal Pain, Nausea, Vomiting Genitourinary: Denies: Dysuria Musculoskeletal: Reports: Back Pain, Joint Pain. Denies: Joint Tenderness Skin: Denies: Rash, Wounds Neurological: Denies: Numbness, Tingling, Focal weakness Psychiatric: Denies: Anxiety, Depression, Homicidal Ideations, Suicidal Ideations Hematologic/ Lymphatic: Reports: Anemia, Easy Bruising, Easy Bleeding VTE Information - Inpt Only VTE Present on Admission: No VTE Mechan Device Prophylaxis: SCD's VTE Pharm Prophylaxis ordered?: Yes Patient Problems: Active and Suspected Problems (Last Reviewed 10/15/19 @ 13:24 by Tonya Zarate) Radiation pneumonitis (Suspected) Hypoxia (Acute) Subjective: Patient seated upright in the ED bed, fatigued, no obvious evidence of any dyspnea currently but with even just moving in the bed patient oxygenation decrease and he does have increased respiratory rate. Objective: Physical Examination: General: awake, alert, oriented x 3 and cooperative, seated upright in the ED bed in no apparent distress if patient is at rest. Skin: normal color, turgor, no icterus, cyanosis. HEENT: AT/NC, EOMI, PERRLA, mildly dry MM, no carotid bruits or JVD noted. Lungs: Diffusely diminished breath sounds, greater bases, currently while at rest respiratory rate appropriate with moderate effort, mild crackles which expect are likely chronic to bilateral mid to bases, no obvious rhonchi or wheezing. Heart: Mildly tachycardic with regular rhythm; no gallop, rub audible. Abdomen: soft, cachectic habitus, NTTP, ND, normal BS, no HSM. Extremities: no cyanosis, clubbing, or edema. Neurological: patient awake, alert, oriented as noted; cognitive function intact; pupils equally reactive to light and accomodation; cranial nerves II-XII grossly normal, moving all 4 extremities, no focal deficits, strength moderately to severely global decrease secondary to acute presentation. Psychiatric: affect appears fatigued otherwise normal, no acute evidence of depressive or anxiety feelings. - Physical Exam Vitals/I&O's: Vital Signs Temp Pulse Resp BP Pulse Ox 96.7 F L 103 H 28 H 122/60 H 97 05/25/20 09:04 05/25/20 12:18 05/25/20 12:18 05/25/20 12:18 05/25/20 12:18 Oxygen Delivery Method Room Air Weight: 115 lb Body Mass Index (BMI) 17.4 Intake and Output for Last 24 Hours 05/23/20 05/24/20 05/25/20 23:59 23:59 23:59 Intake Total 1000 / 1000 Balance 1000 / 1000 Microbiology Past 72 Hours 05/25/20 10:40 Mucosa - Nose SARS-CoV-2 Antigen (Rapid) - Final Laboratory Results 05/25/20 10:45: WBC 6.5, RBC 3.29 L, Hgb 8.8 L, Hct 28.7 L, MCV 87.2, MCH 26.7 L , MCHC 30.7 L, RDW Std Deviation 60.5 H, RDW Coeff of Nestor 18.9 H, Plt Count 324, MPV 8.0, Immature Gran % (Auto) 1.400 H, Neut % (Auto) 73.4 H, Lymph % (Auto) 10.1 L, [place] % (Auto) 13.2 H, Eos % (Auto) 1.4, Baso % (Auto) 0.5, Absolute Neuts (auto) 4.8, Absolute Lymphs (auto) 0.66 L, Nucleated RBC % 0 05/25/20 10:45: Sodium 139, Potassium 4.9, Chloride 109 H, Carbon Dioxide 24.0, Anion Gap 6, BUN 27 H, Creatinine 0.99, Estim Creat Clear Calc 50.49, Est GFR (MDRD) Af Amer 95, Est GFR (MDRD) Non-Af 79, BUN/Creatinine Ratio 27.2 H, Glucose 69 L, Calcium 8.3 L, Total Bilirubin 0.80, AST 22, ALT 20, Alkaline Phosphatase 131 H, Troponin I < 0.015, Total Protein 6.4, Albumin 2.4 L, Globulin 4.0, Albumin/Globulin Ratio 0.6 L 05/25/20 10:45: Lactic Acid 0.9 05/25/20 10:45: Procalcitonin 0.13 H 05/25/20 11:20: PT 13.4, INR 1.1, APTT 31.7 Assessment/Plan All Active Problems (Last Reviewed 10/15/19 @ 13:24 by Tonya Zarate) Hypoxia (Acute) The patient is a 70 y/o M w/ PMHx: Severe Protein Calorie Malnutrition, HTN, HLD, Diabetes mellitus type II, Chronic anemia, Former Tobacco use, Known Non- small cell Lung CA who presents to the [facility] ED on 05/25/20 with history of worsening dyspnea and hypoxia, recent evaluation per Dr. Lomas with pulse oximeter in his office 50% following exerting himself with concurrently associated tachycardia, nearly up to 160s with improvement if he rests only with ongoing unchanged chronic cough. 1. 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 Patient following w/ Dr. Lomas. Will admit to [facility], maintain on oxygen with wean as tolerated to room air although suspect will need oxygenation upon discharge especially ambulation trial given his history upon presentation, continue ATC duonebs, PRN albuterol, will initiate on IV Solu-Medrol given higher suspicion for radiation pneumonitis, hold on immediate abx therapy pending sputum cultures, full respiratory panel and urine antigens. Will request Dr. Segal evaluation to be cautious given CT findings although lower suspicion for infection and higher suspicion for radiation pneumonitis. Procalcitonin only minimally elevated. Bld cx x 2 obtained in the ED. 2. Hypertension: Continue home regimen including losartan with hold parameters, PRN hydralazine. 3. Hyperlipidemia: Continue home statin regimen. 4. Diabetes mellitus type II with hypoglycemia: Hold oral home regimen, continue home insulin regimen if BS improving otherwise may necessitate further alteration/hold, HgBA1c pending, ADA diet, accu checks w/ ISS. 5. Chronic anemia, normocytic: Admission hemoglobin 8.8, most recently noted 10/18/2019 value 10.2 but following with the [facility] thus not a recent value, will continue to closely monitor as may be contributing to patient presentation. 6. Severe protein calorie malnutrition: Evidenced by significantly reduced BMI, obvious muscle and fat loss, nutrition consulted for recommendations. 7. Tobacco use history with recent cessation: Patient with 60 years of tobacco use with ~21-[id number]-[id number] smoking history w/ ongoing 1/2 pack per day until as noted ~ 3 weeks prior to current presentation. Will encourage continued tobacco cessation. 8. DVT Prophylaxis: SCDs, lovenox. 9. CODE status: Patient HCPMARYCARMEN is his who is present and living will is currently in place. Discussed CODE status at length including difference between FULL code, DNR-CCA and DNR-CC status. Following discussions about the differences in these status, requested DNR-CCA, no intubation status. Advanced C are Planning Face to Face Time: 16 minutes. OBSV E&M: [id number] Initial observation care L3 Procedures: 04500 Advncd Care Plan 30 Min
[2020-05-25 14:18] LABS: Bacteria 0 SEEN /hpf (None Seen); Red Blood Cells-Urine 0 SEEN /hpf (0-5)
[2020-05-25 14:21] LABS: Color, Urine Straw (Yellow); Glucose, Dipstick Normal (Normal); Ketone-Dipstick Negative (Negative); Leukocyte Esterase-Dipstick 100 /ul (Negative); Nitrite-Dipstick Negative (Negative); Occult Blood-Urine 10 /ul (Negative); Protein-Dipstick 30 mg/dl (Negative); Urine Bilirubin Dipstick Negative (Negative); Urine Clarity Sl. Cloudy (Clear); Urine Urobilinogen Normal (Normal)
[2020-05-25 14:33] LABS: Mucous, Urine RARE /hpf (<or=2+); Squamous Epithelial Cells - UA 0-5 SEEN /hpf (0-5); White Blood Cells 5-10 SEEN /hpf (0-5)
[2020-05-25 18:50] LABS: Magnesium 2.1 mg/dL (1.6-2.6)
[2020-05-25 18:58] LABS: Hemoglobin A1c 5.7 % (3.8-5.6)
--- NOTE | 2020-05-25 19:06 | NURSING ---
183 Blood sugar noted to be 39 prior to supper. pt alert and oriented. Not symptomatic. Juice x2, peanutbutter x2 and crackers and milk. Ate 100%. Rechecked at 184 blood sugar 45. Pt ate a few more bites of fish for supper. still not symptomatic. blood sugar at 191 67. Lab here to draw back up blood.
[2020-05-25 19:45] LABS: Glucose 74 mg/dL (74-106)
[2020-05-25] MEDS: Dextrose 50%-Water 25 GM/50 ML DISP.SYRIN IV (19:56)
[2020-05-25 20:01] LABS: Bedside Glucose 88 mg/dL (70-110)
[2020-05-25] MEDS: Ipratropium/Albuterol Sulfate 3 ML AMPUL.NEB INHALATION (20:20)
[2020-05-25] MEDS: Famotidine 20 MG Tablet PO (21:29)
[2020-05-25] MEDS: Atorvastatin Calcium 10 MG Tablet PO (21:33)
[2020-05-25] MEDS: Glucerna Shake 120 ML LIQUID PO (21:33)
[2020-05-25 21:51] LABS: Bedside Glucose 39 mg/dL (70-110)
[2020-05-25 21:51] LABS: Bedside Glucose 64 mg/dL (70-110)
[2020-05-25 21:51] LABS: Bedside Glucose 45 mg/dL (70-110)
[2020-05-25 21:51] LABS: Bedside Glucose 67 mg/dL (70-110)
[2020-05-25 21:51] LABS: Bedside Glucose 268 mg/dL (70-110)
[2020-05-26] VITALS (16 sets, daily range): BP systolic 105–134; BP diastolic 60–77; PULSE 88–112; RESP 16–20; TEMP 36.5–36.7; O2SAT 94–99
[2020-05-26 06:28] LABS: Absolute Lymphocyte Count 0.31 X10^3/uL (0.83-4.51); Absolute Neutrophil Count 2.8 X10^3/uL (2.0-7.7); Basophil# 0.01 X10^3/uL; Basophil% 0.3 % (0-1); Eosinophil# 0.01 X10^3/uL; Eosinophils% 0.3 % (0-5); Hematocrit 27.7 % (40-54); Hemoglobin 8.5 g/dL (13.0-16.5); Lymphocyte # 0.31 X10^3/ul (4.0); Lymphocyte % 9.5 % (19-41); Mean Corp Hgb Conc 30.7 g/dL (32-36); Mean Corpuscular Hgb 27.7 pg (27.0-32.0); Mean Corpuscular Volume 90.2 fL (80-94); Mean Platelet Vol. 8.1 fl (6.2-12.0); Monocyte# 0.09 X10^3/uL; Monocyte% 2.8 % (0-10); NRBC Flagged by Analyzer 0 % (0-5); Neutrophil # 2.78 X10^3/uL (2.7-7.7); Neutrophil % 85.6 % (47-70); POSITIVE DIFFERENTIAL YES; Platelet Count 274 K/mm3 (150-450); RBC Distribution Width CV 18.5 % (11.6-14.6); RBC Distribution Width SD 60.4 fl (35.1-43.9); Red Blood Count 3.07 M/mm3 (4.6-6.2); White Blood Count 3.3 K/mm3 (4.4-11.0)
[2020-05-26 06:32] LABS: Differential Indicated SCAN CRITERIA MET
[2020-05-26 06:46] LABS: Bedside Glucose 276 mg/dL (70-110)
[2020-05-26 06:57] LABS: ALB/GLOB Ratio 0.6 RATIO (0.9-2.4); AST(SGOT) 21 U/L (15-37); Alanine Aminotransfer ALT/SGPT 22 U/L (16-61); Albumin, Serum 2.5 g/dL (3.2-5.0); Alkaline Phosphatase 132 U/L (45-117); Anion Gap 6 (5-15); BUN 25 mg/dL (7-18); BUN/Creat Ratio 23.6 RATIO (10-20); Calcium,Total 8.5 mg/dL (8.5-10.1); Chloride 106 mmol/L (98-107); Creatinine, Serum 1.06 mg/dL (0.70-1.30); EST Glomerular Filtration Rate 73 mL/min (>60); Est Glom Filt Rate - Afr Amer 89 mL/min (>60); Estimated Creatinine Clearance 48.55 ml/min; Glucose 274 mg/dL (74-106); Potassium 5.7 mmol/L (3.5-5.1); Protein, Total 6.5 g/dL (6.4-8.2); Sodium Level 135 mmol/L (136-145)
--- NOTE | 2020-05-26 08:23 | PN_ITS ---
Patient Problems: Active and Suspected Problems (Last Reviewed 10/15/19 @ 13:24 by Tonya Zarate) Radiation pneumonitis (Suspected) Hypoxia (Acute) Reason for Visit: Dyspnea Radiation pneumonitis Hyperkalemia Subjective: 70-year-old gentleman with history of non-small cell lung CA currently undergoing chemoradiation therapy presented with worsening hypoxia Admitted to regular nursing floor for further management. Diagnostic work-up this a.m. is significant for potassium of 5.7 Objective: GENERAL: cooperative HEENT: Atraumatic; EYES; Anicteric, Normal Conjunctiva NECK; supple, normal thyroid, RESPIRATORY: Diminished to auscultation CARDIOVASCULAR: Regular S1 S2, GI: soft, normoactive bowel sounds, : No Renal angle tenderness; EXTREMITIES: No edema, no clubbing, MUSCULOSKELETAL: no muscle waisting NEURO: Awake; no lateralizing signs. SKIN: No Rash PSYCH; Flat affect Vitals/I&O's: Vital Signs Temp Pulse Resp BP Pulse Ox 97.8 F 96 16 127/71 H 97 05/26/20 03:30 05/26/20 04:04 05/26/20 03:30 05/26/20 03:30 05/26/20 07:27 Oxygen Flow Rate (L/min) 2 Oxygen Delivery Method Room Air Weight: 53.7 kg Body Mass Index (BMI) 18.0 Intake and Output for Last 24 Hours 05/24/20 05/25/20 05/26/20 23:59 23:59 23:59 Intake Total 1000 / 1250 550 / 550 Balance 1000 / 1250 550 / 550 Microbiology Past 72 Hours 05/25/20 19:50 Urine, Clean Catch Legionella Antigen - Final 05/25/20 19:50 Urine, Clean Catch Streptococcus pneumoniae Antigen (M - Final 05/25/20 15:12 Mucosa - Nasopharyngeal Respiratory Panel (PCR) - Final 05/25/20 10:40 Mucosa - Nose SARS-CoV-2 Antigen (Rapid) - Final Laboratory Results 05/25/20 10:45: WBC 6.5, RBC 3.29 L, Hgb 8.8 L, Hct 28.7 L, MCV 87.2, MCH 26.7 L , MCHC 30.7 L, RDW Std Deviation 60.5 H, RDW Coeff of Nestor 18.9 H, Plt Count 324, MPV 8.0, Immature Gran % (Auto) 1.400 H, Neut % (Auto) 73.4 H, Lymph % (Auto) 10.1 L, [place] % (Auto) 13.2 H, Eos % (Auto) 1.4, Baso % (Auto) 0.5, Absolute Neuts (auto) 4.8, Absolute Lymphs (auto) 0.66 L, Nucleated RBC % 0 05/25/20 10:45: Sodium 139, Potassium 4.9, Chloride 109 H, Carbon Dioxide 24.0, Anion Gap 6, BUN 27 H, Creatinine 0.99, Estim Creat Clear Calc 50.49, Est GFR (MDRD) Af Amer 95, Est GFR (MDRD) Non-Af 79, BUN/Creatinine Ratio 27.2 H, Glucose 69 L, Calcium 8.3 L, Total Bilirubin 0.80, AST 22, ALT 20, Alkaline Phosphatase 131 H, Troponin I < 0.015, Total Protein 6.4, Albumin 2.4 L, Globulin 4.0, Albumin/Globulin Ratio 0.6 L 05/25/20 10:45: Lactic Acid 0.9 05/25/20 10:45: Procalcitonin 0.13 H 05/25/20 10:45: Hemoglobin A1c 5.7 H 05/25/20 10:45: Magnesium 2.1 05/25/20 11:20: PT 13.4, INR 1.1, APTT 31.7 05/25/20 14:13: Urine Color Straw, Urine Clarity Sl. Cloudy, Urine pH 5.0, Ur Specific [place] 1.010, Urine Protein 30 H, Urine Glucose (UA) Normal, Urine Ketones Negative, Urine Occult Blood 10 H, Urine Nitrite Negative, Urine Bilirubin Negative, Urine Urobilinogen Normal, Ur Leukocyte Esterase 100 H, Urine RBC 0 SEEN, Urine WBC 5-10 SEEN, Ur Squamous Epith Cells 0-5 SEEN, Urine Bacteria 0 SEEN, Urine Mucus RARE 05/25/20 15:12: COVID-19 ([facility]) Not Detected 05/25/20 18:30: POC Glucose 39 L* 05/25/20 18:50: POC Glucose 45 L 05/25/20 19:08: POC Glucose 67 L 05/25/20 19:25: POC Glucose 64 L 05/25/20 19:27: Glucose 74 05/25/20 19:46: POC Glucose 88 05/25/20 21:25: POC Glucose 268 H 05/26/20 06:04: POC Glucose 276 H 05/26/20 06:22: WBC 3.3 L, RBC 3.07 L, Hgb 8.5 L, Hct 27.7 L, MCV 90.2, MCH 27.7, MCHC 30.7 L, RDW Std Deviation 60.4 H, RDW Coeff of Nestor 18.5 H, Plt Count 274, MPV 8.1, Immature Gran % (Auto) 1.500 H, Neut % (Auto) 85.6 H, Lymph % (Auto) 9.5 L, [place] % (Auto) 2.8, Eos % (Auto) 0.3, Baso % (Auto) 0.3, Absolute Neuts (auto) 2.8, Absolute Lymphs (auto) 0.31 L, Nucleated RBC % 0, Diff Path Review July05/26/20 06:22: Sodium 135 L, Potassium 5.7 H, Chloride 106, Carbon Dioxide 23.0, Anion Gap 6, BUN 25 H, Creatinine 1.06, Estim Creat Clear Calc 48.55, Est GFR (MDRD) Af Amer 89, Est GFR (MDRD) Non-Af 73, BUN/Creatinine Ratio 23.6 H, Glucose 274 H, Calcium 8.5, Total Bilirubin 0.80, AST 21, ALT 22, Alkaline Phosphatase 132 H, Total Protein 6.5, Albumin 2.5 L, Globulin 4.0, Albumin/G lobulin Ratio 0.6 L Current Medications Acetaminophen (Acetaminophen 325 Mg Tablet) 650 mg PO Q6H PRN PRN PRN Reason: Pain Score 1-10/Temp > 100.7 F Al Hydroxide/Mg Hydroxide (Mag Hydrox/Al Hydrox/Simeth 30 Ml Udc) 30 ml PO Q6H PRN PRN PRN Reason: Gastric Burning Albuterol Sulfate (Albuterol 2.5 Mg/3 Ml Vial.Neb.) 2.5 mg INHALATION Q2H PRN PRN PRN Reason: Dyspnea, wheezing Albuterol/Ipratropium (Ipratropium/Albuterol Sulfate 3 Ml Ampul.Neb) 3 ml INHALATION Q6HWA.RT [facility] Last Admin: 05/25/20 20:20 Dose: 3 ml Documented by: Atorvastatin Calcium (Atorvastatin Calcium 10 Mg Tablet) 10 mg PO QHS [facility] Last Admin: 05/25/20 21:33 Dose: 10 mg Documented by: Enoxaparin Sodium (Enoxaparin 40 Mg/0.4 Ml Syringe) 40 mg SC DAILY [facility] Famotidine (Famotidine 20 Mg Tablet) 20 mg PO BID [facility] Last Admin: 05/25/20 21:29 Dose: 20 mg Documented by: Guaifenesin (Guaifenesin 10 Ml Udc (200mg/10ml)) 20 ml PO Q4H PRN PRN PRN Reason: COUGH Hydralazine HCl (Hydralazine 20 Mg/Ml Vial) 10 mg IV Q4H PRN PRN PRN Reason: SBP > 160 Insulin Glargine (Insulin [facility] 100 Units/[facility]l [facility]) [facility] Admin: 05/25/20 21:43 Dose: Not Given Documented by: Insulin Human Lispro (Insulin Lispro 100 Unit/Ml Insuln.Pen) 0 unit SC [facility]; Protocol Last Admin: 05/25/20 21:42 Dose: Not Given Documented by: Losartan Potassium (Losartan Potassium 50 Mg Tablet) 100 mg PO DAILY [facility] Magnesium Hydroxide (Magnesium Hydroxide 30 Ml Udc) 30 ml PO DAILY PRN PRN PRN Reason: Constipation Melatonin (Melatonin 3 Mg Tablet) 3 mg PO QHS PRN PRN PRN Reason: INSOMNIA Methylprednisolone (Methylprednisolone 40 Mg/Ml Vial) 40 mg IV Q8 [facility] Last Admin: 05/26/20 05:58 Dose: 40 mg Documented by: Nutritional Formula (Lactose Free) (Glucerna Shake 120 Ml Liquid) 120 ml PO 4X/DAY [facility] Last Admin: 05/25/20 21:33 Dose: 120 ml Documented by: Ondansetron HCl (Ondansetron 4 Mg/2 Ml Vial) 4 mg IV Q8H PRN PRN PRN Reason: NAUSEA/VOMITING Potassium Chloride (Potassium Chloride Oral Tablet 20 Meq) [facility] Prochlorperazine Edisylate (Prochlorperazine 10 Mg/2 Ml Vial) 5 mg IV Q4H PRN PRN PRN Reason: Breakthrough nausea/vomiting Psyllium Hydrophilic Mucilloid (Psyllium 1 Packet) 1 packet PO DAILY PRN PRN PRN Reason: Constipation Senna/Docusate Sodium (Senna/Docusate Sodium 1 Tablet) 2 tablet PO BID PRN PRN PRN Reason: Constipation Sodium Chloride (0.9% Saline Lock 10 Ml Syringe) 10 - 40 ml IV UD PRN PRN Reason: SALINE FLUSH Throat Lozenges (Benzocaine/Menthol 1 Lozenge) 1 lozenge MUCOUS MEM Q2H PRN PRN PRN Reason: SORE THROAT STROKE Vital Signs/Narrative: Vital Signs Pulse Ox 05/26/20 07:27 97 05/26/20 05:56 98 Medical Necessity - Tobacco Use Smoking Status: Former smoker - Patient quit cigarette tobacco usage approximately 3 weeks prior to current presentation. Patient with 60 years of tobacco use with ~[id number] smoking history w/ ongoing 1/2 pack per day until as noted ~ 3 weeks prior to current presentation. Tobacco Use: Non-smoker Assessment/Plan All Active Problems (Last Reviewed 10/15/19 @ 13:24 by Tonya Zarate) Hypoxia (Acute) 70-year-old gentleman with history of non-small cell lung CA currently undergoi ng chemoradiation therapy presented with worsening hypoxia 1. Acute dyspnea ?Suspected to be secondary to radiation pneumonitis admitted to regular nursing floor where patient is undergoing subsequent evaluation. As part of patient's management and infectious etiology is being ruled out. Patient underwent CT of the chest on admission which demonstrated No pulmonary embolism or arterial dissection.There is a soft tissue mass in the left lower lobe superior segment has decreased in size since the previous study now measures 4.4 x 3.1 cm, that measured previously 6 x 4.9 cm. There are ill-defined groundglass opacities in the right lower lobe, left upper lobe and left lower lobe may represent postradiation changes or pneumonia. It was felt patient findings consistent with radiation pneumonitis started on steroids admitted to regular nursing floor for further management 2. Hyperkalemia ?Patient is on potassium supplementation discontinued repeat potassium came back at 5.7 which was original value. An order was given for patient to receive Kayexalate with subsequent monitoring of electrolytes ordered 3. 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 Currently undergoing chemoradiation as outpatient 4. Dyslipidemia -Patient is on statin therapy, continued at home dose 5. Diabetes mellitus type II -patient's oral hypoglycemics held. Placed on long acting insulin, Accu-Cheks a.c. and at bedtime and covered with sliding scale insulin 6. Protein calorie malnutrition ?As evidenced by low BMI decreased energy level muscle wasting consultation placed to dietitian 7. Anemia - Secondary to chronic disorder monitoring H&H and transfuse if patient becomes symptomatic or hemoglobin falls below 7 8. Hypertension - Blood pressure controlled, home medications continued with dose adjustment as needed 9. Tobacco dependence - Counseled on cessation, offered nicotine patch for tobacco cravings 10. DVT prophylaxis SC Lovenox Inpatient E&M: 79651 Subs Hosp L3
[2020-05-26] MEDS: Enoxaparin 40 MG/0.4 ML Syringe SC (08:48)
[2020-05-26] MEDS: Losartan Potassium 50 MG Tablet 100 MG PO (08:48)
[2020-05-26] MEDS: Insulin Lispro 100 UNIT/ML INSULN.PEN SC ×2 (08:49→22:28)
[2020-05-26] MEDS: Famotidine 20 MG Tablet PO ×2 (08:49→22:27)
[2020-05-26 10:12] LABS: Potassium 5.7 mmol/L (3.5-5.1)
[2020-05-26 11:40] LABS: Pathologist Review Reviewed
--- NOTE | 2020-05-26 11:40 | CASEMGMT ---
DEANNA REED Face to Face with patient for initial transition planning/care coordination assessment. DEANNA REED introduced self and role at [facility]. Patient sitting in chair, alert and oriented, at bedside. Patient willing to participate in assessment and is able to answer all questions appropriately. Care providers, pharmacy, and demographics verified. Patient wishes to discharge home, denies need for home health at this time. Patient states he has no further needs or concerns at this time. CM to follow for discharge planning needs that may arise. PCP: Damian Ordaz Specialists: Cesilia, oncologist Preferred Pharmacy: [facility] Insurance: [employer] [facility] Prescription Benefit: yes Living Will/HPOA: yes, Harleen Monge LNOK: Living Arrangements: patient lives with in a split level home with 5-6 steps with railing. Patient states he is independent at home and able to ambulate stairs. Transportation: DME/HHC: Patient states he has shower chair, cane, walker, grab bars. Patient denies previous HHC. Will monitor for home oxygen at discharge. DEANNA REED informed patient that [facility] is his insurance's preferred provider for DME. Patient and voiced understand and would like [facility] for DME if needed Disposition Plan: Patient to discharge home with family support and follow-up plans in place. Malissa DARBY, RN, CM
[2020-05-26] MEDS: Sodium Polystyrene Sulfonate 15 GM/60 ML UDC 30 GM PO (11:59)
--- NOTE | 2020-05-26 12:03 | NURSING ---
Blood sugar just checked and it was greater then 466. Lab called for lab back up and order put in. Pt has a Mountain Dew pop sitting on his table that he was drinking. states she went and got him one b/c he wanted one. [place] is regular not diet.
[2020-05-26 12:10] LABS: Bedside Glucose 466 mg/dL (70-110)
[2020-05-26 12:56] LABS: Glucose 506 mg/dL (74-106)
[2020-05-26] MEDS: Insulin Lispro 100 UNIT/ML INSULN.PEN 10 UNIT SC (13:15)
[2020-05-26] MEDS: Insulin Lispro 100 UNIT/ML INSULN.PEN 20 UNIT SC (13:15)
--- NOTE | 2020-05-26 13:17 | NURSING ---
This nurse rechecked blood sugar after giving insulin 30units total of novolog 30 min ago and BS is now 437. Lab called and said blood sugar when it was drawn was 506.
[2020-05-26 13:20] LABS: Bedside Glucose 437 mg/dL (70-110)
[2020-05-26 17:03] LABS: Potassium 4.3 mmol/L (3.5-5.1)
[2020-05-26 17:20] LABS: Bedside Glucose 146 mg/dL (70-110)
[2020-05-26] MEDS: Ipratropium/Albuterol Sulfate 3 ML AMPUL.NEB INHALATION (20:51)
[2020-05-26] MEDS: Atorvastatin Calcium 10 MG Tablet PO (22:27)
[2020-05-26 22:40] LABS: Bedside Glucose 260 mg/dL (70-110)
[2020-05-27 03:35] VITALS: BP 143/70; PULSE 86; RESP 17; TEMP 36.8; O2SAT 94
[2020-05-27 03:41] VITALS: PULSE 81
[2020-05-27 07:15] LABS: Bedside Glucose 121 mg/dL (70-110)
--- NOTE | 2020-05-27 07:49 | PCM.DC ---
- Discharge Diagnoses Current Active Problems: Current Active and Chronic Problems (Last Reviewed 10/15/19 @ 13:24 by Tonya Zarate) Hypoxia (Acute) Severe protein-calorie malnutrition (Chronic) Chronic anemia (Chronic) Tobacco abuse (Chronic) HTN (hypertension) (Chronic) DM2 (diabetes mellitus, type 2) (Chronic) Allergies/Adverse Reactions: Allergies Penicillins Allergy (Unknown, Verified 05/25/20 09:09) Rash Medications to take at Discharge glimepiride 2 mg tablet 2 mg PO DAILY 10/18/19 losartan 50 mg tablet 100 mg PO DAILY 10/18/19 Insulin Glargine [Lantus SoloStar Pen] 22 units SUBCUT QHS 10/19/19 Acetaminophen 500 mg PO Q8H PRN PRN 05/25/20 Simvastatin 20 mg PO QHS 05/25/20 Guaifenesin [Mucinex] 1,200 mg PO BID #14 tab 05/27/20 predniSONE tablet 20 mg PO DAILY@0800 #5 tab 05/27/20 The following prescriptions were given: Guaifenesin [Mucinex] 1,200 mg PO BID #14 tab Transmission Status: P[facility] to [facility] [facility]. predniSONE tablet 20 mg PO DAILY@0800 #5 tab Transmission Status: Pending to [facility] . Primary Care Physician: Damian Ordaz [employer] ARCHITECT, [employer] ARCHITECT-C [Primary Care Provider] - Please follow up with your Primary Care Physician in: in 1 week Test Results: Test results from this visit will be discussed in further detail at your follow-up appointment, if applicable. Proposed Discharge Date: 05/27/20
[2020-05-27 07:50] VITALS: PULSE 79
[2020-05-27 07:55] VITALS: PULSE 80; RESP 20; O2SAT 98
[2020-05-27] MEDS: Ipratropium/Albuterol Sulfate 3 ML AMPUL.NEB INHALATION (07:55)
[2020-05-27] MEDS: Insulin Lispro 100 UNIT/ML INSULN.PEN 10 UNIT SC (08:41)
[2020-05-27] MEDS: predniSONE 20 MG Tablet 40 MG PO (08:44)
[2020-05-27 09:03] LABS: Anion Gap 7 (5-15); BUN 30 mg/dL (7-18); BUN/Creat Ratio 29.1 RATIO (10-20); Calcium,Total 8.6 mg/dL (8.5-10.1); Chloride 112 mmol/L (98-107); Creatinine, Serum 1.03 mg/dL (0.70-1.30); EST Glomerular Filtration Rate 76 mL/min (>60); Est Glom Filt Rate - Afr Amer 92 mL/min (>60); Estimated Creatinine Clearance 49.31 ml/min; Glucose 110 mg/dL (74-106); Sodium Level 140 mmol/L (136-145)
[2020-05-27 09:35] VITALS: BP 113/51; PULSE 94; RESP 18; TEMP 36.5; O2SAT 99
--- NOTE | 2020-05-27 10:20 | PCM.DC.SUM ---
Discharge Date and Diagnosis - Problem List Patient Problems: Active and Suspected Problems (Last Reviewed 10/15/19 @ 13:24 by Tonya Zarate) Radiation pneumonitis (Suspected) Hypoxia (Acute) Date of Admission: 05/25/20 Date of Discharge: 05/27/20 - Primary Discharge Diagnosis Acute Problems: Active Problems (Last Reviewed 10/15/19 @ 13:24 by Tonya Zarate) Hypoxia (Acute) Suspected Problems: Suspected Problems (Last Reviewed 10/15/19 @ 13:24 by Tonya Zarate) Radiation pneumonitis (Suspected) - Secondary Discharge Diagnosis Chronic Problems: Chronic Problems (Last Reviewed 10/15/19 @ 13:24 by Tonya Zarate) Severe protein-calorie malnutrition (Chronic) Chronic anemia (Chronic) Tobacco abuse (Chronic) HTN (hypertension) (Chronic) DM2 (diabetes mellitus, type 2) (Chronic) Hospital Course and Treatment Imaging Results: Clinical Impression(s) from Imaging Studies Chest X-Ray 05/25/20 10:29 IMPRESSION: Left lower lobe pneumonia. Electronically Signed: Roseann Polanco MD at 11:52 EST Tel , Service support , Chest CTA 05/25/20 12:23 IMPRESSION: No demonstrated pulmonary embolism or arterial dissection. There is a soft tissue mass in the left lower lobe superior segment has decreased in size since the previous study now measures 4.4 x 3.1 cm, that measured previously 6 x 4.9 cm. There are ill-defined groundglass opacities in the right lower lobe, left upper lobe and left lower lobe may represent postradiation changes or pneumonia. Electronically Signed: Roseann Polanco MD at 13:25 EST Tel , Service support , Summary of Care Provided: 1. Acute dyspnea ?Suspected to be secondary to radiation pneumonitis admitted to regular nursing floor where patient is undergoing subsequent evaluation. As part of patient's management and infectious etiology is being ruled out. Patient underwent CT of the chest on admission which demonstrated No pulmonary embolism or arterial dissection.There is a soft tissue mass in the left lower lobe superior segment has decreased in size since the previous study now measures 4.4 x 3.1 cm, that measured previously 6 x 4.9 cm. There are ill-defined groundglass opacities in the right lower lobe, left upper lobe and left lower lobe may represent postradiation changes or pneumonia. It was felt patient findings consistent with radiation pneumonitis started on steroids admitted to regular nursing floor for further management 2. Hyperkalemia ?Patient is on potassium supplementation discontinued repeat potassium came back at 5.7 which was original value. An order was given for patient to receive Kayexalate with subsequent monitoring of electrolytes ordered 3. 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 Currently undergoing chemoradiation as outpatient 4. Dyslipidemia -Patient is on statin therapy, continued at home dose 5. Diabetes mellitus type II -patient's oral hypoglycemics held. Placed on long acting insulin, Accu-Cheks a.c. and at bedtime and covered with sliding scale insulin 6. Protein calorie malnutrition ?As evidenced by low BMI decreased energy level muscle wasting consultation placed to dietitian 7. Anemia - Secondary to chronic disorder monitoring H&H and transfuse if patient becomes symptomatic or hemoglobin falls below 7 8. Hypertension - Blood pressure controlled, home medications continued with dose adjustment as needed 9. Tobacco dependence - Counseled on cessation, offered nicotine patch for tobacco cravings 10. DVT prophylaxis SC Lovenox Patient Problems: Active and Suspected Problems (Last Reviewed 10/15/19 @ 13:24 by Tonya Zarate) Radiation pneumonitis (Suspected) Hypoxia (Acute) Objective: GENERAL: cooperative HEENT: Atraumatic; EYES; Anicteric, Normal Conjunctiva NECK; supple, normal thyroid, RESPIRATORY: Diminished to auscultation CARDIOVASCULAR: Regular S1 S2, GI: soft, normoactive bowel sounds, : No Renal angle tenderness; NEURO: Awake; no lateralizing signs. SKIN: No Rash PSYCH; Flat affect - Physical Exam Vitals/I&O's: Vital Signs Temp Pulse Resp BP Pulse Ox 98.3 F 79 17 143/70 H 94 05/27/20 03:35 05/27/20 07:50 05/27/20 03:35 05/27/20 03:35 05/27/20 03:35 Oxygen Flow Rate (L/min) 2 Oxygen Delivery Method Nasal Cannula Weight: 53 kg Body Mass Index (BMI) 18.0 Intake and Output for Last 24 Hours 05/25/20 05/26/20 05/27/20 23:59 23:59 23:59 Intake Total 1000 / 1250 950 / 950 450 / 450 Balance 1000 / 1250 950 / 950 450 / 450 Microbiology Past 72 Hours 05/25/20 21:00 Sputum, Expectorated/Coughed Gram Stain - Final 05/25/20 21:00 Sputum, Expectorated/Coughed Respiratory Culture - Preliminary Appears to be normal respiratory patrick. Further studies to follow. 05/25/20 10:45 Blood Culture (Wb) - Right Wrist Blood Culture - Preliminary No growth in 48 hours. 05/25/20 10:30 Blood Culture (Wb) - Left Forearm Blood Culture - Preliminary No growth in 48 hours. 05/25/20 14:13 Urine, Clean Catch Urine Culture - Preliminary Streptococcus group B Streptococcus group G 05/25/20 19:50 Urine, Clean Catch Legionella Antigen - Final 05/25/20 19:50 Urine, Clean Catch Streptococcus pneumoniae Antigen (M - Final 05/25/20 15:12 Mucosa - Nasopharyngeal Respiratory Panel (PCR) - Final 05/25/20 10:40 Mucosa - Nose SARS-CoV-2 Antigen (Rapid) - Final Laboratory Results 05/26/20 06:22: Diff Path Review Reviewed 05/26/20 12:01: POC Glucose 466 H* 05/26/20 12:20: Glucose 506 H* 05/26/20 13:14: POC Glucose 437 H 05/26/20 16:03: Potassium 4.3 05/26/20 17:02: POC Glucose 146 H 05/26/20 22:25: POC Glucose 260 H 05/27/20 07:01: POC Glucose 121 H 05/27/20 07:30: Sodium 140, Potassium 4.0, Chloride 112 H, Carbon Dioxide 21.0, Anion Gap 7, BUN 30 H, Creatinine 1.03, Estim Creat Clear Calc 49.31, Est GFR (MDRD) Af Amer 92, Est GFR (MDRD) Non-Af 76, BUN/Creatinine Ratio 29.1 H, Glucose 110 H, Calcium 8.6 Current Medications Acetaminophen (Acetaminophen 325 Mg Tablet) 650 mg PO Q6H PRN PRN PRN Reason: Pain Score 1-10/Temp > 100.7 F Al Hydroxide/Mg Hydroxide (Mag Hydrox/Al Hydrox/Simeth 30 Ml Udc) 30 ml PO Q6H PRN PRN PRN Reason: Gastric Burning Albuterol Sulfate (Albuterol 2.5 Mg/3 Ml Vial.Neb.) 2.5 mg INHALATION Q2H PRN PRN PRN Reason: Dyspnea, wheezing Albuterol/Ipratropium (Ipratropium/Albuterol Sulfate 3 Ml Ampul.Neb) 3 ml INHALATION Q6HWA.RT [facility] Last Admin: 05/26/20 20:51 Dose: 3 ml Documented by: Atorvastatin Calcium (Atorvastatin Calcium 10 Mg Tablet) 10 mg PO QHS [facility] Last Admin: 05/26/20 22:27 Dose: 10 mg Documented by: Enoxaparin Sodium (Enoxaparin 40 Mg/0.4 Ml Syringe) 40 mg SC DAILY [facility] Last Admin: 05/26/20 08:48 Dose: 40 mg Documented by: Famotidine (Famotidine 20 Mg Tablet) 20 mg PO BID [facility] Last Admin: 05/26/20 22:27 Dose: 20 mg Documented by: Guaifenesin (Guaifenesin 10 Ml Udc (200mg/10ml)) 20 ml PO Q4H PRN PRN PRN Reason: COUGH Hydralazine HCl (Hydralazine 20 Mg/Ml Vial) 10 mg IV Q4H PRN PRN PRN Reason: SBP > 160 Insulin Glargine (Insulin Glargine 100 Units/Ml Pen) 22 units SC QHS [facility] Last Admin: 05/26/20 22:28 Dose: 22 u Documented by: Insulin Human Lispro (Insulin Lispro 100 Unit/Ml Insuln.Pen) 0 unit SC ACHS [facility]; Protocol Last Admin: 05/27/20 07:27 Dose: Not Given Documented by: Insulin Human Lispro (Insulin Lispro 100 Unit/Ml Insuln.Pen) 10 unit SC TIDAC [facility] Last Admin: 05/27/20 08:41 Dose: 10 units Documented by: Losartan Potassium (Losartan Potassium 50 Mg Tablet) 100 mg PO DAILY [facility] Last Admin: 05/26/20 08:48 Dose: 100 mg Documented by: Magnesium Hydroxide (Magnesium Hydroxide 30 Ml Udc) 30 ml PO DAILY PRN PRN PRN Reason: Constipation Melatonin (Melatonin 3 Mg Tablet) 3 mg PO QHS PRN PRN PRN Reason: INSOMNIA Ondansetron HCl (Ondansetron 4 Mg/2 Ml Vial) 4 mg IV Q8H PRN PRN PRN Reason: NAUSEA/VOMITING Prednisone (Prednisone 20 Mg Tablet) 40 mg PO DAILY@0800 [facility] Last Admin: 05/27/20 08:44 Dose: 40 mg Documented by: Prochlorperazine Edisylate (Prochlorperazine 10 Mg/2 Ml Vial) 5 mg IV Q4H PRN PRN PRN Reason: Breakthrough nausea/vomiting Psyllium Hydrophilic Mucilloid (Psyllium 1 Packet) 1 packet PO DAILY PRN PRN PRN Reason: Constipation Senna/Docusate Sodium (Senna/Docusate Sodium 1 Tablet) 2 tablet PO BID PRN PRN PRN Reason: Constipation Sodium Chloride (0.9% Saline Lock 10 Ml Syringe) 10 - 40 ml IV UD PRN PRN Reason: SALINE FLUSH Throat Lozenges (Benzocaine/Menthol 1 Lozenge) 1 lozenge MUCOUS MEM Q2H PRN PRN PRN Reason: SORE THROAT Discharge Diet: 1800 Calorie Control Diet Discharge Activity: Return to Normal Activity Home Medications: Medications to take at Discharge glimepiride 2 mg tablet 2 mg PO DAILY 10/18/19 losartan 50 mg tablet 100 mg PO DAILY 10/18/19 Insulin Glargine [Lantus SoloStar Pen] 22 units SUBCUT QHS 10/19/19 Acetaminophen 500 mg PO Q8H PRN PRN 05/25/20 Simvastatin 20 mg PO QHS 05/25/20 Guaifenesin [Mucinex] 1,200 mg PO BID #14 tab 05/27/20 predniSONE tablet 20 mg PO DAILY@0800 #5 tab 05/27/20 Following Prescriptions Were Given to Patient: Guaifenesin [Mucinex] 1,200 mg PO BID #14 tab [facility]: [facility] [facility] predniSONE tablet 20 mg PO DAILY@0800 #5 tab Transmission Status: P[facility] to [facility] [facility] Primary Care Physician: Damian Ordaz [employer] SALES ASSOCIATE, TE[employer] SALES ASSOCIATE-C [Primary Care Provider] - Please follow up with your Primary Care Physician in: in 1 week Disposition: Home Minutes spent on discharge:: 45 Patient Condition:: Stable Medical Necessity - Tobacco Use Smoking Status: Former smoker - Patient quit cigarette tobacco usage approximately 3 weeks prior to current presentation. Patient with 60 years of tobacco use with ~[id number] smoking history w/ ongoing 1/2 pack per day until as noted ~ 3 weeks prior to current presentation. Tobacco Use: Non-smoker Meaningful Use Info Meaningful Use Diagnoses (Choose all that apply): None applicable Inpatient E&M: 65221 [facility]
[2020-05-27 11:16] VITALS: O2SAT 100
== END 2020-05-27 11:21 | disposition home or self-care (01) | DRG 206 ==
LOC: ED 10:00 → MS3 05-26 07:18
PROVIDERS: Admitting Provider Family Medicine; Emergency Provider Student in an Organized Health Care Education/Training Program; PCP Nurse Practitioner Family; Visit Provider Internal Medicine
DX: J70.0 Acute pulmonary manifestations due to radiation (principal); C34.90 Malignant neoplasm of unspecified part of unspecified bronchus or lung; Y84.2 Radiological procedure and radiotherapy as the cause of abnormal reaction of the patient, or of later complication, without mention of misadventure at the time of the procedure; R09.02 Hypoxemia; E87.5 Hyperkalemia; E78.5 Hyperlipidemia, unspecified; D63.8 Anemia in other chronic diseases classified elsewhere; I10 Essential (primary) hypertension; Z87.891 Personal history of nicotine dependence; E11.649 Type 2 diabetes mellitus with hypoglycemia without coma; Z79.4 Long term (current) use of insulin; Z66 Do not resuscitate
CPT/HCPCS: 36415; 71045; 71275; 80048; 80053; 81001; 82947; 82962; 83036; 83605; 83735; 84132; 84145; 84484; 85025; 85610; 85730; 87040; 87070; 87086; 87088; 87186; 87205; 87426; 87449; 87633; 87635; 93005; 94640; 97161; 97166; 97802; 99251; 99284; J7040; Q9967; G0463; U0002